=== PATIENT | male | born 1940 | race Caucasian/White ===

== ENCOUNTER 2023-07-03 11:10 | Emergency (ER) | payer MEDICARE, OTHER, SELFPAY ==
[2023-07-03 11:13] VITALS: BP 153/88
[2023-07-03 11:41] LABS: % Basophils 0.4 % (0-2); % Eosinophils 4.8 % (0-6); % Immature Granulocytes 0.3 % (0-0.5); % Lymphocytes 42.9 % (20.5-51.1); % Monocytes 9.1 % (1.7-9.3); % Neutrophils 42.5 % (42.2-75.2); Absolute Eosinophils 0.3 10^3/uL (0-0.7); Absolute Lymphocytes 2.9 10^3/uL (1.2-3.4); Absolute Monocytes 0.6 10^3/uL (0.1-0.6); Absolute Neutrophils 2.9 10^3/uL (1.4-6.5); Hematocrit 38.3 % (39.0-52.0); Mean Corp Hgb Conc. 33.9 g/dL (33.0-37.0); Mean Corpuscular Hgb 30.6 pg (27.0-31.0); Mean Corpuscular Volume 90.1 fL (80.0-94.0); Mean Platelet Volume 9.6 fL (7.4-10.4); Nucleated Red Blood Cells % 0 % (-); Platelet Count 228 10^3/uL (130-400); Red Blood Cell Count 4.25 10^6/uL (4.70-6.10); Red Cell Dist. Width 15.9 % (11.5-14.5); White Blood Cell Count 6.7 10^3/uL (4.8-10.8)
[2023-07-03 11:52] LABS: PT 22.1 Sec (11.4-14.6)
[2023-07-03 12:09] LABS: COVID-19 Antigen Negative (Negative)
[2023-07-03 12:10] LABS: Troponin I < 0.012 ng/ml
[2023-07-03 12:43] LABS: ALT (SGPT) 15 U/L (0-50); AST (SGOT) 28 U/L (17-59); Albumin 3.3 g/dl (3.5-5.0); Alkaline Phosphatase 79 U/L (38-126); Blood Urea Nitrogen 14 mg/dl (9-20); Calcium 8.5 mg/dl (8.4-10.2); Carbon Dioxide 27 mmol/L (22-30); Chloride 106 mmol/L (98-107); Glucose 85 mg/dl (70-99); Potassium 3.8 mmol/L (3.5-5.1); Sodium 136 mmol/L (135-145); Total Bilirubin 0.8 mg/dl (0.2-1.3); Total Protein 6.2 g/dl (6.3-8.2); eGFR > 60.00
--- NOTE | 2023-07-03 13:16 | ED.GENMED ---
History of Present Illness
General
Chief Complaint: Weakness
Time Seen by Provider: 07/03/23 13:14
Travel History
Have you had any contact with someone who has COVID-19?: No
Do you have any symptoms of coronavirus? Fever > 100 degrees, chills, cough, shortness of breath, sore throat, loss of taste or smell, muscle aches, or headache?: No
History of Present Illness
History of Present Illness:
HPI: Patient presents due to weakness and fatigue as well as chills. He has been sleeping '20 hours a day' for the past several weeks. About a month ago, he had a 'RSV like' respiratory illness. Since that time he is not improved. During
sleeping, he has been having delusions. Yesterday evening while eating was the first time that he was awake and had an onset of delusions (reportedly thought he was fighting in a [employer] airplane). He has a history of bipolar/depression on
Depakote and Abilify. Family spoke to his psychiatrist who felt that this presentation was not psychiatric in nature.
EXAM:
GENERAL: Appears generally weak and debilitated
HEENT: Dry oral mucosa
CARDIOVASCULAR: No murmurs, heart rate 64 on my physical examination and has an irregular rhythm, No chest wall tenderness
PULMONARY: No respiratory distress, breath sounds are clear and equal
ABDOMEN: Soft with no peritoneal signs, no tenderness
NEUROLOGIC: Bradykinesia noted however moving all extremities equally, no coordination deficits, knows it is June and knows he is at [facility]
PSYCHIATRIC: Appropriate mental status, normal insight and judgement, very minor cognitive deficits with somewhat of a flat affect
EXTREMITIES: Nontender, no edema, moves all extremities equally
SKIN: No rash, no lesions
ED COURSE:
1:20 PM: I initially evaluated patient
NUMBER AND COMPLEXITY OF PROBLEMS ADDRESSED AT THE ENCOUNTER
� Chronic conditions affecting care: Former smoker, BPH, bipolar disorder/depression
� Acute Exacerbation and/or Progression of Chronic Illness: This is a subacute problem ongoing for the last 7 weeks
� Differential Diagnosis includes: Progression of bipolar/depression, UTI, intracranial pathology, anemia, infection such as UTI or COVID/flu
AMOUNT AND/OR COMPLEXITY OF DATA TO BE REVIEWED AND ANALYZED
� I performed an independent evaluation of and my interpretation is:
EKG: Low-voltage, suspect A-fib ventricular rate of 52, nonspecific ST abnormality
CT: CT brain negative for acute abnormality
X-rays:
Laboratory Studies: White count normal, hemoglobin normal, chemistries unremarkable, COVID-negative, flu negative, Depakote level within range. Urinalysis shows no sign of UTI but he did have a small amount of ketones�of note
the UA was obtained after 2 L were given.
Other:
� Review of other/old records: Reviewed echo from 08/30/2021 that showed EF of 50 to 55% and indeterminate diastolic function
� Clinical information was obtained by an independent historian: I spoke to the and son at bedside
� Prescriptions/Medications Considered but not given:
� Further testing considered but not performed: Considered admission to the hospital however there is no clear medical abnormality at this time
RISK OF COMPLICATIONS AND/OR MORBIDITY OR MORTALITY OF PATIENT MANAGEMENT
� Social determinants of health affecting care: Lives at home
� Discussion with other providers: At 3:40 PM, I spoke to his psychiatrist, Dr. Starr and informed him that the medical workup is unremarkable
� Escalation of care including admission/observation vs risk of discharge considered: Upon my initial evaluation, the patient was already given nearly a liter of fluid and still has a sensation of inability to void, Therefore I
am concerned about the possibility of dehydration. Will give another liter of fluid. On reassessment at 3:45 PM, the patient appears weak but awakens easily and has reasonable insight.
Past History
Past History
ED Past Medical History: Arrthythmia (A. fib) and Psychiatric (Bipolar)
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
Social History
Tobacco: Former smoker
Alcohol: Occasional
Drug: None
Personal:
Living: with family
Employment: Retired
Family History
Family History: Other (Noncontributory)
Phy Exam
Physical Exam
Physical Exam:
See HPI
Course
Orders/Labs/Results
Orders:
Orders
07/03/23 11:17
Electrocardiogram (*1) Urgent
Reason for Study: Fatigue / Weakness
07/03/23 11:18
EKG- Treatment ONCE
07/03/23 11:27
CMP [Comprehensive Metabolic Panel] Urgent
COVID-19 Antigen Urgent
Source: Nasal Swab
Complete Blood Count/With Diff Urgent
PT/INR [Prothrombin Time] Urgent
Troponin I Routine
Influenza A+B Rapid Molecular Urgent
GERA Source: Nasal Swab
Specimen Description:
07/03/23 13:28
CT Head W/o Iv Contrast Urgent
Comment:
Reason For Exam: alt ms
0.9% Sodium Chloride 1000 ml [Nss] 1,000 ml IV BOLUS
07/03/23 13:34
CR Chest - 2 Views Urgent
Comment:
Reason For Exam: cough
07/03/23 13:36
Valproic Acid Level [Depakane] Urgent
07/03/23 15:05
Urinalysis Reflex To Culture Urgent
Date Specimen was Collected: 07/03/23
Time Specimen was Collected: 15:04
Abnormal Lab Results
07/03/23 07/03/23
11:27 15:05
RBC 4.25 L 10^6/uL
(4.70-6.10)
Hct 38.3 L %
(39.0-52.0)
RDW 15.9 H %
(11.5-14.5)
PT 22.1 H Sec
(11.4-14.6)
Creatinine 0.6 L mg/dL
(0.7-1.3)
Total Protein 6.2 L g/dl
(6.3-8.2)
Albumin 3.3 L g/dl
(3.5-5.0)
Urine Ketones 1+ A
(Negative)
07/03/23 11:27
07/03/23 11:27
Vital Signs
Initial and Last Documented VS:
Initial Vital Signs
Temp Pulse Resp BP Pulse Ox
97.5 F 76 16 153/88 96
07/03/23 11:13 07/03/23 11:13 07/03/23 11:13 07/03/23 11:13 07/03/23 11:13
Last Documented Vital Signs
Temp Pulse Resp BP Pulse Ox
97.5 F 47 16 120/90 100
07/03/23 11:13 07/03/23 13:54 07/03/23 13:54 07/03/23 13:54 07/03/23 13:54
*Critical Care Note
Total Time (30-74mins, 75-104mins- exclusive of procedures): Not Applicable
ED Attending Note
-
Portions of this chart may have been created with voice recognition software.� Occasional wrong word or��sound alike� substitutions may have occurred due to the inherent limitations of voice recognition software.
Discharge Plan
Departure
Patient Disposition: Home (Routine Discharge)
Date of Disposition: 07/03/23
Time of Disposition: 15:47
Patient with high blood pressure during this ER visit?: Yes
Discharge Problem:
Weakness
Instructions: Generalized Weakness (DC), BLOOD PRESSURE
Prescriptions:
No Action
lamotrigine [Lamictal] 200 MG tablet
200 mg PO DAILY
folic acid 0.4 MG tablet
0.8 mg PO DAILY
carbamazepine 200 MG tablet
600 mg PO .DAILY EVENING
carbamazepine 200 MG tablet
400 mg PO .DAILY AM
ascorbic acid (vitamin C) [Vitamin C] 500 MG tablet
500 mg PO DAILY
tamsulosin 0.4 MG capsule
0.4 mg PO HS
oxybutynin chloride 5 MG tablet
5 mg PO HS
mupirocin 1 APPLIC ointment
intranasal BID
oxycodone 5 MG tablet
5 mg PO Q4HPRN PRN (Reason: pain) Qty: 60 0RF
Rx Instructions:
1-2 tabs po q4-6 prn
prochlorperazine maleate 5 MG tablet
5 mg PO Q6HPRN PRN (Reason: nausea) Qty: 40 0RF
docusate sodium 100 MG capsule
100 mg PO BID Qty: 30 0RF
sennosides [senna] 1 TABLET tablet
2 tab PO BID Qty: 40 0RF
acetaminophen 325 MG tablet
650 mg PO Q4HPRN PRN (Reason: pain, fever) Qty: 60 0RF
aspirin 325 MG tablet,delayed release (DR/EC)
325 mg PO DAILY Qty: 30 0RF
Referrals:
Meng Hernandez I., DO [Family Provider] -
Activity Restrictions/Additional Instructions:
The cause of the symptoms is unclear. There is no sign of urinary tract infection but there were some ketones in the urine suggestive of some dehydration. The kidney function is normal. The white blood cell count is normal. Cardiac blood work
was normal. Depakote level was within range. COVID test and flu test are both negative. CAT scan of the brain showed no acute abnormality. Chest x-ray suggested COPD however there is no sign of pneumonia or fluid buildup. Follow-up with your
psychiatrist and with your primary care doctor.
Interventions
Interventions:
*Risk Screen - Suicide Last Done: 07/03/23 13:40
*General Assessment Last Done: 07/03/23 13:39
*Neglect/Abuse Screening Last Done: 07/03/23 13:40
ED- Fall Risk Assessment Last Done: 07/03/23 13:40
*ED COVID-19 Vaccine History Last Done: 07/03/23 11:13
ED- Cardiac Assessment Last Done: 07/03/23 13:46
ED- Neurological Assessment Last Done: 07/03/23 13:46
ED- Pulmonary Assessment Last Done: 07/03/23 13:46
--- NOTE | 2023-07-03 13:26 | EDRN ---
Dr. Gonzalez in room w/ pt at this time.
[2023-07-03 13:54] VITALS: BP 120/90
[2023-07-03] MEDS: NSS 1000 IV (13:58)
[2023-07-03 14:04] LABS: Depakane 53.2 ug/ml (50.0-120.0)
[2023-07-03 14:33] VITALS: BMI 22.3
[2023-07-03 15:11] LABS: Urine Albumin Negative (Neg - Trace); Urine Bilirubin Negative (Negative); Urine Character Clear (Clear); Urine Color Yellow; Urine Glucose Negative (Negative); Urine Ketone 1+ (Negative); Urine Leukocyte Negative (Negative); Urine Nitrite Negative (Negative); Urine Occult Blood Negative (Negative); Urine Specific Gravity 1.015 (<1.030); Urine Urobilinogen Negative (Neg - 1+)
[2023-07-03 16:37] VITALS: BP 146/99
== END 2023-07-03 16:38 | disposition home or self-care (01) ==
LOC: EMR 11:10
PROVIDERS: Emergency Medicine; EMERGENCY PHYSICIAN Emergency Medicine; FAMILY PHYSICIAN Internal Medicine
DX: R53.1 Weakness (principal); Z87.891 Personal history of nicotine dependence; F31.9 Bipolar disorder, unspecified; R03.0 Elevated blood-pressure reading, without diagnosis of hypertension
CPT/HCPCS: 99285; 96360; 96361; 70450; 71046; 80053; 80164; 81003; 84484; 85025; 85610; 87502; 87811; 93005

== ENCOUNTER → 2023-09-15 12:50 | Outpatient (REF) | payer MEDICARE, OTHER, SELFPAY | LOC: PAVMRI 12:50 | PROVIDERS: ATTENDING PHYSICIAN Internal Medicine | DX: R41.82 Altered mental status, unspecified (principal); F31.9 Bipolar disorder, unspecified; D68.69 Other thrombophilia; F22 Delusional disorders | CPT/HCPCS: 70551 ==

== ENCOUNTER → 2025-03-14 12:14 | Outpatient (REF) | payer MEDICARE, OTHER, SELFPAY | LOC: HWRAD 12:14 | PROVIDERS: ATTENDING PHYSICIAN Specialist; FAMILY PHYSICIAN Internal Medicine | DX: R31.0 Gross hematuria (principal) | CPT/HCPCS: 76770 ==